=== PATIENT | female | born 1955 | race Caucasian/White ===

== ENCOUNTER 2025-05-29 12:06 | Outpatient (CLI) | payer MEDICARE, MEDICAID, SELFPAY ==
--- NOTE | ~2025-05-29 | XR_ITS ---
XR lumbar spine min 4V Indication: M54.50 - Low back pain, unspecified, chronic pain x 20yrs Comparison: None Findings: Posterior fixation of S1, L5 and L4, the hardware is intact, no acute fracture. Grade 1 retrolisthesis of L2 on L3. No subluxation with flexion-extension. Mild levoconvex scoliosis. Moderate to severe loss of disc height throughout most marked at L4-5 and L5-S1. Soft tissues unremarkable Impression: No acute abnormality. Reviewed, dictated and finalized at location [facility] [employer] Impression: No acute abnormality.
== END 2025-05-29 12:07 | disposition home or self-care (01) ==
PROVIDERS: Visit Provider Nurse Practitioner Adult Health
DX: M54.50 Low back pain, unspecified (principal)
CPT/HCPCS: 72110